=== PATIENT | female | born 1955 | race Two or more races ===

== ENCOUNTER 2024-08-20 07:58 | Emergency (ER) | payer OTHER ==
[~2024-08-20] VITALS: Ht 152.4 cm; Wt 77.1 kg
[~2024-08-20 07:58] MED LIST: KETO10TA2 PO; LISINOPRIL20 MG
[2024-08-20] MEDS ORDERED: METFORMIN HCL500 M3 PO (08:15)
[2024-08-20] MEDS ORDERED: CALTRATE 600 +1 EAC1 PO (08:15)
[2024-08-20] MEDS ORDERED: ALENDRONATE SOD70 MG PO (08:15)
[2024-08-20] MEDS ORDERED: ZYRTEC10 M3 PO (08:16)
[2024-08-20] MEDS ORDERED: ATORVASTATIN CA20 MG PO (08:16)
[2024-08-20] MEDS ORDERED: DEXAMETHAS0.5 MG/5 M PO (08:16)
[2024-08-20] MEDS ORDERED: LOSARTAN POTASS50 MG PO (08:16)
[2024-08-20] MEDS ORDERED: GRALISE600 MG (08:16)
[2024-08-20] MEDS ORDERED: AMLODIPINE-OLM1 EAC2 PO (08:17)
[2024-08-20] MEDS ORDERED: BARIUM SULFATE 450 ML ORAL.SUSP PO ONE (08:45)
[2024-08-20 09:05] LABS: HEMATOCRIT 37.8 % (36.0-45.00); HEMOGLOBIN 12.7 g/dL (12.0-15.00); MEAN CELL VOLUME 85.3 fL (80.00-100.00); MEAN CORPUSCULAR HEMOGLOBIN 28.7 pg (27.00-32.0); MEAN CORPUSCULAR HGB CONC 33.6 g/dl (32.0-36.0); PLATELET COUNT 289 K/uL (150-450); RED BLOOD COUNT 4.43 M/uL (4.00-6.00); RED CELL DISTRIBUTION WIDTH 13.7 % (11.5-14.5)
[2024-08-20 09:34] LABS: ALBUMIN 3.6 gm/dL (3.4-5.0); BILIRUBIN TOTAL 0.91 mg/dL (0.3-1.2); CREATININE SERUM 1.12 mg/dL (0.55-1.02); GFR 48.52; GLOBULINA 3.9 G/DL (2.4-3.5); POTASSIUM 3.84 mEq/L (3.5-5.1); TOTAL PROTEIN 7.5 gm/dL (6.4-8.2)
[2024-08-20 10:30] LABS: URINE APPEARANCE Clear; URINE BILIRRUBIN Negative (NEGATIVE); URINE BLOOD Negative; URINE COLOR Yellow; URINE GLUCOSE Negative (NEGATIVE); URINE KETONE Negative (NEGATIVE); URINE LEUKOCYTE Small; URINE NITRATE Negative; URINE PROTEIN Negative (NEGATIVE); URINE UROBILINOGEN 0.2 E.U./dl
[2024-08-20 10:34] LABS: URINE BACTERIA 313.3 uL (0.0-1933); URINE EPITHELIAL CELLS 13.9 uL (0.0-38.8); URINE WBC 20.7 uL (0.0-23.2)
[2024-08-20 10:39] LABS: URINE RBC 1.3 uL (0.0-20.8)
[2024-08-20] MEDS ORDERED: PEPCID AC20 MG PO (14:39)
[2024-08-20] MEDS ORDERED: LEVSIN/SL0.125 MG SL (14:40)
[2024-08-20] MEDS ORDERED: CIPRO500 MG PO (14:40)
== END 2024-08-20 14:49 | disposition home or self-care (01) ==
LOC: ER 07:58
PROVIDERS: General Practice
DX: R10.9 Unspecified abdominal pain (principal); Z88.0 Allergy status to penicillin; Z88.1 Allergy status to other antibiotic agents